=== PATIENT | female | born 1960 ===

== ENCOUNTER 2017-08-02 07:58 | Emergency (ER) | payer BC ==
[2017-08-02 08:15] VITALS: BP 152/83
--- NOTE | 2017-08-02 08:46 | RAD ---
INDICATION: Fall. Right leg injury COMPARISON: None TECHNIQUE: AP and lateral views were obtained. FINDINGS: There is no acute fracture. There is mild soft tissue injury with edema about the lateral leg and the anterior proximal leg. IMPRESSION: SOFT TISSUE INJURY. NO ACUTE BONY CHANGE.
--- NOTE | 2017-08-02 08:54 | UC ---
Lower Extremity/Ankle HPI - HPI Summary HPI Summary: right leg pain x 7 day s/p fall off the stairs , injury to right leg + pain , swelling , bruising of the left - History of Current Complaint Chief Complaint: UCLowerExtremity Stated Complaint: S/P FALL RIGHT LEG Time Seen by Provider: 08/02/17 08:04 Hx Obtained From: Patient Onset/Duration: Sudden Onset, Lasting Weeks - 1, Still Present Severity Initially: Moderate Severity Currently: Moderate Aggravating Factor(s): Standing, Ambulation Alleviating Factor(s): Rest, Elevation Able to Bear Weight: Yes - Allergies/Home Medications Allergies/Adverse Reactions: Allergies Allergy/AdvReac Type Severity Reaction Status Date / Time No Known Allergies Allergy Verified 08/02/17 08:06 Home Medications: Home Medications Calcium Carbonate-Vitamin D [Calcium 500 + D] 1 tab PO DAILY 08/02/17 [History Confirmed 08/02/17] Cranberry (Vaccinium Macrocarp [Cranberry] 500 mg PO DAILY 08/02/17 [History Confirmed 08/02/17] Ibuprofen [Advil] 1,000 mg PO ONCE PRN 08/02/17 [History Confirmed 08/02/17] [place]-3 Fatty Acids [Fish Oil] 1,000 mg PO DAILY 08/02/17 [History Confirmed 01/14] Rosuvastatin (NF) [Crestor (NF)] 20 mg PO QPM 08/02/17 [History Confirmed ] PMH/Surg Hx/FS Hx/Imm Hx - Additional Past Medical History Additional PMH: hx of hepatitis - Surgical History Surgical History: Yes Surgery Procedure, Year, and Place: . carpal tunnel. trigger finger release - Family History Known Family History: Negative: Diabetes - Social History Alcohol Use: None Substance Use Type: None Smoking Status (MU): Never Smoked Tobacco Review of Systems Constitutional: Negative Skin: Negative Eyes: Negative ENT: Negative Respiratory: Negative Cardiovascular: Negative Is Patient Immunocompromised?: No All Other Systems Reviewed And Are Negative: Yes Physical Exam Triage Information Reviewed: Yes Appearance: Well-Appearing, No Pain Distress, Well-Nourished Vital Signs: Initial Vital Signs Temp 97.7 F 08/02/17 08:08 Pulse 74 08/02/17 08:08 Resp 18 08/02/17 08:08 BP 152/83 08/02/17 08:08 Pulse Ox 100 08/02/17 08:08 Vital Signs Reviewed: Yes Eye Exam: Normal Eyes: Positive: Conjunctiva Clear ENT: Positive: Normal ENT inspection, Hearing grossly normal, Pharynx normal Neck: Positive: Supple, Nontender, No Lymphadenopathy Respiratory: Positive: Chest non-tender, Lungs clear, Normal breath sounds Cardiovascular: Positive: RRR, No Murmur, Pulses Normal Musculoskeletal: Positive: Other: - right leg: + Hematoma right lateral leg , + tenderness, + ecchymosis of the ankle and foot good ROM of the right ankle / foot Lower Extremity Course/Dx - Differential Dx/Diagnosis Provider Diagnoses: contusio right lower leg. hematomal right lower leg Discharge - Discharge Plan Condition: Stable Disposition: HOME Patient Education Materials: Contusion in Adults (ED), Hematoma (ED) Additional Instructions: normal lower leg XRay follow up with your pcp in 1 week
== END 2017-08-02 08:57 | disposition home or self-care (01) ==
LOC: UCCORT 07:58
DX: S80.11XA Contusion of right lower leg, initial encounter (principal); X58.XXXA Exposure to other specified factors, initial encounter
CPT/HCPCS: 99211; G0463